=== PATIENT | female | born 1980 | race American Indian/Alaskan Native ===

== ENCOUNTER 2017-10-11 22:14 | Emergency (ER) | payer MEDICAID ==
[2017-10-11] MEDS ORDERED: TYLENOL/CODEINE PO ONE (23:36)
[2017-10-11] MEDS ORDERED: MUCINEX ER PO ONE (23:36)
--- NOTE | 2017-10-11 23:54 | Emergency Department Report ---
HPI - General Chief Complaint: Upper Respiratory Infection Time Seen by Provider: 10/11/17 23:31 - HPI HPI: Patient is a 37-year-old female with no prior medical condition presents to ED complaining of cough and sneezing and congestion 4 days. Patient states above a week ago she noticed she had a sore throat. Patient states by the next day sore throat was relieved. Patient is 4 days ago she started to express intermittent, whitish productive cough. Patient states congestion and runny nose began shortly n. She states sometimes her sputum is yellowish brownish white. Patient states she does not recall having any fever, nausea, chills, vomiting, abdominal pain, shortness of breath, dizziness, headache, blurry vision. ED Past Medical Hx - Past Medical History Previous Medical History?: No - Surgical History Past Surgical History?: No - Social History Smoking Status: Current Every Day Smoker Substance Use Type: Alcohol - Medications Home Medications: Home Medications Medication Instructions Recorded Confirmed Last Taken Type Acetamin/Codeine 120-12Mg/5 ml 5 ml PO TID #60 ml 10/12/17 Unknown Rx [Tylenol/Codeine 120-12 mg/5 ml] Ibuprofen [Motrin] 600 mg PO Q8H PRN #20 tablet 10/12/17 Unknown Rx guaiFENesin ER [Mucinex ER] 600 mg PO BID #12 tablet 10/12/17 Unknown Rx ED Review of Systems ROS: Stated complaint: CHEST PAIN,HEADACHE,HEAVY MUCUS Other details as noted in HPI Constitutional: denies: chills, fever Eyes: denies: eye pain, eye discharge, vision change ENT: denies: ear pain, throat pain Respiratory: denies: cough, shortness of breath, wheezing Cardiovascular: denies: chest pain, palpitations Endocrine: no symptoms reported Gastrointestinal: denies: abdominal pain, nausea, diarrhea Genitourinary: denies: urgency, dysuria, discharge Musculoskeletal: denies: back pain, joint swelling, arthralgia Skin: denies: rash, lesions Neurological: denies: headache, weakness, paresthesias Psychiatric: denies: anxiety, depression Hematological/Lymphatic: denies: easy bleeding, easy bruising Physical Exam - Physical Exam Vital Signs: Vital Signs 10/11/17 22:32 Temperature 98.5 F Pulse Rate 82 Respiratory 18 Rate Blood Pressure 125/82 O2 Sat by Pulse 97 Oximetry Physical Exam: GENERAL: Alert and oriented x3, no apparent distress, Normal Gait, atraumatic. HEAD: Head is normocephalic and a-traumatic. EYES: Extra ocular muscles are intact. Pupils are equal, round, and reactive to light and accommodation. EARS: symetrical, atraumatic, non tender, ear canal clear and moderate cerumen, tympanic membrance non inflamed. gross auditory nml bilaterally. NOSE: Nose symetrical, Nontender,Nares appeared normal. Clear rhinorrhea nostrils MOUTH:Mouth is well hydrated and without lesions. Tonsils nonerythematous or swollen, Uvula midline, Tongue not elevated. Mucous membranes are moist. Posterior pharynx clear, no exudate or lesions. Patent airways. NECK: Supple. Non edematous, No lymphadenopathy or thyromegaly. No C-spine tenderness LUNGS: Symetrical with respiration, No wheezing, no rales or crackles, CTAB. HEART: S1, S2 present, regular rate and rhythm without murmur. Non tender to palpation SKIN: Warm and dry, No lesions, No ulceration or induration present. ED Course Vital Signs 10/11/17 22:32 Temperature 98.5 F Pulse Rate 82 Respiratory 18 Rate Blood Pressure 125/82 O2 Sat by Pulse 97 Oximetry ED Medical Decision Making - Radiology Data Radiology results: report reviewed, image reviewed FINAL REPORT EXAM: XR CHEST ROUTINE 2V HISTORY: cough/chest pain TECHNIQUE: upright single view chest PRIORS: None. FINDINGS: Cardiac and mediastinal contours are unremarkable. No focal pulmonary infiltrate is identified. No pleural fluid collection seen. Pulmonary vasculature is unremarkable. IMPRESSION: Negative single-view chest Transcribed By: JORGE Dictated By: WANDA MCKEON MD Electronically Authenticated By: WANDA MCKEON MD Signed Date/Time: 10/11/171956 - Medical Decision Making 37-year-old female presents with upper respiratory infection ED course: Patient received medications in the ED for symptomatic relief Chest x-ray ordered. Chest x-ray shows no acute infiltrates or abnormalities I discussed this findings with the patient. I discussed the patient most likely a viral syndrome and will resolve on its own. I discussed with the patient to increase hydration, vitamin C, rest. Vital signs are normalized patient is in no acute or respiratory distress. Critical care attestation.: If time is entered above; I have spent that time in minutes in the direct care of this critically ill patient, excluding procedure time. ED Disposition Clinical Impression: Upper respiratory infection Qualifiers: URI type: unspecified URI Qualified Code(s): J06.9 - Acute upper respiratory infection, unspecified Disposition: TO HOME OR SELFCARE Is pt being admited?: No Does the pt Need Aspirin: No Condition: Stable Instructions: Upper Respiratory Infection (ED), Viral Syndrome (ED), Cold Symptoms (ED) Additional Instructions: Make sure to follow up with the primary care physician as discussed. Take all your medications as you've been prescribed. If you have any worsening symptoms or develop new symptoms please return to ED immediately. Prescriptions: Acetamin/Codeine 120-12Mg/5 ml [Tylenol/Codeine 120-12 mg/5 ml] 5 ml PO TID #60 ml guaiFENesin ER [Mucinex ER] 600 mg PO BID #12 tablet Ibuprofen [Motrin] 600 mg PO Q8H PRN #20 tablet PRN Reason: Pain Referrals: PRIMARY CARE, [Primary Care Provider] - 3-5 Days [facility] [Outside] - 3-5 Days [facility] [Outside] - 3-5 Days Forms: Accompanied Note, Work/School Release Form(ED) Time of Disposition: 00:04
--- NOTE | 2017-10-11 23:59 | XRay Report ---
FINAL REPORT EXAM: XR CHEST ROUTINE 2V HISTORY: cough/chest pain TECHNIQUE: upright single view chest PRIORS: None. FINDINGS: Cardiac and mediastinal contours are unremarkable. No focal pulmonary infiltrate is identified. No pleural fluid collection seen. Pulmonary vasculature is unremarkable. IMPRESSION: Negative single-view chest
[2017-10-12 00:21] VITALS: BP 120/81
== END 2017-10-12 00:21 | disposition home or self-care (01) ==
LOC: EDBD → ED 22:14
DX: J06.9 Acute upper respiratory infection, unspecified (principal); F17.200 Nicotine dependence, unspecified, uncomplicated
CPT/HCPCS: 71020; 93005; 93010; 99283

== ENCOUNTER 2018-02-13 16:28 | Emergency (ER) | payer MEDICAID ==
[2018-02-13 20:38] LABS: HCG Qualitative,Urine Negative (Negative)
[2018-02-13 21:51] LABS: Amorphous Crystals,Urine 1+; Mucus,Urine FEW /HPF
[2018-02-13 21:52] LABS: Bilirubin,Urine NEG (Negative); Blood,Urine SM (Negative); Color,Urine Yellow (Yellow); Protein,Urine <15 mg/dL mg/dL (Negative); Urobilinogen,Urine < 2.0 mg/dL (<2.0)
[2018-02-13 21:56] LABS: WBC,Urine < 2.0 /HPF (0.0-6.0)
[2018-02-13] MEDS ORDERED: MOTRIN PO ONE (23:02)
--- NOTE | 2018-02-13 23:07 | Emergency Department Report ---
ED Back Pain/Injury HPI - General Chief Complaint: Urogenital-Female Stated Complaint: LOWER BACK PAIN / POSS STI Time Seen by Provider: 02/13/18 21:37 Source: patient Limitations: No Limitations - History of Present Illness Initial Comments: 37-year-old -[place] female comes in complaining of back pain that's been going on for a week. Patient reports that she vomited one time about a week ago. She has taken no pain medication. She denies any blood in the urine no fever no vaginal discharge or vaginal bleeding. She reports not drinking as much water has been holding her urine more. She feels her urine is more concentrated. 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 She will ports or pain to 4 out of 10 at rest and is 7 out of 10 with movement. She currently has no past medical history takes no medication on a daily basis and has no known drug allergies. MD Complaint: back pain -: week(s) (1) Similar Symptoms Previously: No Severity: moderate Severity scale (0 -10): 4 Quality: aching Consistency: intermittent Improves With: supine Worsens With: movement (getting in and out of bed) Context: while lifting, turning/twisting, bending Associated Symptoms: denies: numbness, difficulty urinating, incontinence, fever /chills - Related Data Previous Rx's Medication Instructions Recorded Last Taken Type Acetamin/Codeine 120-12Mg/5 ml 5 ml PO TID #60 ml 10/12/17 Unknown Rx [Tylenol/Codeine 120-12 mg/5 ml] guaiFENesin ER [Mucinex ER] 600 mg PO BID #12 tablet 10/12/17 Unknown Rx Ibuprofen [Motrin 600 MG tab] 600 mg PO Q8H PRN #20 tablet 02/13/18 Unknown Rx Allergies Allergy/AdvReac Type Severity Reaction Status Date / Time No Known Allergies Allergy Verified 02/13/18 17:23 ED Review of Systems ROS: Stated complaint: LOWER BACK PAIN / POSS STI Other details as noted in HPI Constitutional: denies: chills, fever Eyes: denies: eye pain, eye discharge, vision change ENT: denies: ear pain, throat pain Respiratory: denies: cough, shortness of breath, wheezing Cardiovascular: denies: chest pain, palpitations Endocrine: no symptoms reported Gastrointestinal: denies: abdominal pain, nausea, diarrhea Genitourinary: denies: urgency, dysuria, discharge Musculoskeletal: back pain (low back). denies: joint swelling, arthralgia Skin: denies: rash, lesions Neurological: denies: headache, weakness, paresthesias Psychiatric: depression Hematological/Lymphatic: denies: easy bleeding, easy bruising ED Past Medical Hx - Past Medical History Previous Medical History?: No - Surgical History Past Surgical History?: No - Social History Smoking Status: Never Smoker Substance Use Type: None - Medications Home Medications: Home Medications Medication Instructions Recorded Confirmed Last Taken Type Acetamin/Codeine 120-12Mg/5 ml 5 ml PO TID #60 ml 10/12/17 Unknown Rx [Tylenol/Codeine 120-12 mg/5 ml] guaiFENesin ER [Mucinex ER] 600 mg PO BID #12 tablet 10/12/17 Unknown Rx Ibuprofen [Motrin 600 MG tab] 600 mg PO Q8H PRN #20 tablet 02/13/18 Unknown Rx ED Physical Exam - General Limitations: No Limitations General appearance: alert, in no apparent distress - Head Head exam: Present: atraumatic, normocephalic - Eye Eye exam: Present: normal appearance - ENT ENT exam: Present: mucous membranes moist - Neck Neck exam: Present: normal inspection - Respiratory Respiratory exam: Present: normal lung sounds bilaterally. Absent: respiratory distress - Cardiovascular Cardiovascular Exam: Present: regular rate, normal rhythm. Absent: systolic murmur, diastolic murmur, rubs, gallop - GI/Abdominal GI/Abdominal exam: Present: soft, normal bowel sounds - Extremities Exam Extremities exam: Present: normal inspection - Back Exam Back exam: Present: normal inspection - Neurological Exam Neurological exam: Present: alert, oriented X3 - Psychiatric Psychiatric exam: Present: normal affect, normal mood - Skin Skin exam: Present: warm, dry, intact, normal color. Absent: rash ED Course Vital Signs 02/13/18 17:23 Temperature 98.4 F Pulse Rate 74 Respiratory 16 Rate Blood Pressure 125/83 O2 Sat by Pulse 100 Oximetry ED Medical Decision Making - Medical Decision Making Patient's been evaluated but this provider fast track. I discussed the patient test was negative her urine was not very impressive. Discussed the patient we'll give her pain medications ibuprofen 600 mg were ordered. Discharge patient on ibuprofen for her to follow up with her primary care provider. Critical care attestation.: If time is entered above; I have spent that time in minutes in the direct care of this critically ill patient, excluding procedure time. ED Disposition Clinical Impression: Low back pain Qualifiers: Chronicity: acute Back pain laterality: right Sciatica presence: without sciatica Qualified Code(s): M54.5 - Low back pain Disposition: - TO HOME OR SELFCARE Is pt being admited?: No Does the pt Need Aspirin: No Condition: Stable Instructions: Acute Low Back Pain (ED) Additional Instructions: Please take pain medication as prescribed. Please follow-up with her primary care provider for further evaluation. Prescriptions: Ibuprofen [Motrin 600 MG tab] 600 mg PO Q8H PRN #20 tablet PRN Reason: Pain Referrals: PRIMARY CARE, [Primary Care Provider] - 3-5 Days
[2018-02-14 06:36] VITALS: BP 127/84
== END 2018-02-13 23:05 | disposition home or self-care (01) ==
LOC: ED 16:28
DX: M54.5 Low back pain (principal)
CPT/HCPCS: 81001; 81025; 99283